=== PATIENT | male | born 1955 | race Caucasian/White ===

== ENCOUNTER 2016-09-11 19:00 | Inpatient (IN) | payer MEDICARE ==
[2016-09-11 20:54] VITALS: BP 147/69
[2016-09-11] MEDS ORDERED: Sodium Chloride 0.9% 1,000 ML IV SCH (21:15)
[2016-09-11] MEDS ORDERED: HYDROmorphone 1 mg/mL 1mL Syr IVP PRN (22:18)
[2016-09-12] MEDS: INSULIN ASPART SLIDING SCALE 100 UNITS/ML UNIT SUBQ SCH ×5 (00:14→21:33)
--- NOTE | 2016-09-12 05:50 | Consultation ---
REFERRING PHYSICIAN: Dr. Alan. REASON FOR CONSULTATION: Subacute bacterial peritonitis. HISTORY OF PRESENT ILLNESS: The patient is a 61-year-old male with a past medical history of diabetes mellitus, hypertension, has developed severe abdominal pain associated with increase in abdominal distension. He felt short of breath and dizziness, so he drove himself to the [facility] and [place] for further evaluation and management. On initial evaluation, the patient's temperature 97 degrees Fahrenheit and WBC count was 2800. CT scan of the abdomen and pelvis revealed diverticulosis without diverticulitis, hepatocellular disease and portal hypertension and non-obstructing left renal stone, small ascites and cholelithiasis. However, the patient had paracentesis performed and around 5100 mL of ascitic fluid removed. The fluid study revealed wbc count of 3500 with a neutrophilic predominance. The patient was diagnosed to have subacute bacterial peritonitis and the patient was started on Rocephin. For insurance purposes, the patient was transferred to [facility] and he was started on Rocephin. ID consult was called for further antibiotic management. PAST MEDICAL HISTORY: Includes diabetes mellitus, hypertension. The patient is not aware of his cirrhosis, but definitely he has some cirrhosis of liver. SOCIAL HISTORY: The patient lives at home and denies any smoking or drug use. The patient drinks alcohol on occasional basis in parties only, no alcohol at home. ALLERGIES: The patient is allergic to PENICILLIN, but has tolerated Rocephin. MEDICATIONS: As per medication reconciliation sheet. Antibiotic guzman, the patient is on Rocephin. FAMILY HISTORY: Noncontributory. REVIEW OF SYSTEMS: CONSTITUTIONAL: The patient denies any fever or chills. HEENT: The patient denies any diplopia, photophobia, sore throat or congestion. RESPIRATORY: The patient denies any cough or shortness of breath at this time, but has presented with shortness of breath, likely restrictive condition due to tense ascites. CARDIOVASCULAR: The patient has swelling of the legs. Denies any chest pain or palpitation. GASTROINTESTINAL: The patient has had upper abdominal pain, which has resolved. The patient also has a significant abdominal distention. Denies any nausea, vomiting, diarrhea or constipation. The patient has history of peptic ulcer disease in the past, required blood transfusions and following blood transfusion, the patient developed bacterial infection requiring IV antibiotic for at least 2 weeks. GENITOURINARY: The patient denies any dysuria or hematuria. NEUROLOGICAL: The patient denies any headache, dizziness or focal weakness at this time. The patient complains of some numbness in lower extremity. PHYSICAL EXAMINATION: CURRENT VITAL SIGNS: Shows temperature is 98 degrees Fahrenheit, pulse 77, respiration is 19, blood pressure 147/69 and oxygen saturation is 99%. GENERAL: The patient is comfortable, well nourished, well developed. HEENT: Head is normocephalic, atraumatic. Oral cavity moist, pink tongue. Eyes: Pallor is present, mild icterus. Pupils PERRLA, EOMI. NECK: Supple, no JVD, no carotid bruit. Trachea in midline. No lymphadenopathy. CHEST: Bilateral breath sounds. No crackles or wheezing. CARDIOVASCULAR: S1 and S2 within normal limit, regular rhythm. No murmur, no gallop. ABDOMEN: Soft, mild tender in the left lower quadrant. Distended. Bowel sounds present. The patient has mild erythema of abdominal wall without any wound. EXTREMITIES: No cyanosis, no clubbing. The patient has pitting edema of both lower extremity. NEUROLOGIC: Alert, awake, oriented x 3. No focal deficit. LABORATORY DATA: Current lab at [facility], WBC count is 2800, hemoglobin 8.5, hematocrit 27.5, platelets are 72,000. Lipase 45, AST is 37, ALT is 21 and alkaline phosphatase is 202, bilirubin is 2.4, creatinine 0.6. Ascitic fluid study, gram-stain and organism, there is presence of white cells, cell count shows wbc 3500, rbc 300, PMNs 83%. Albumin less than 1 and protein less than 3. Urinalysis show negative nitrite, negative leukoesterase. CT scan of the abdomen and pelvis shows diverticulosis without diverticulitis, hepatocellular disease and a portal hypertension, nonobstructing left renal stones, small ascites, cholelithiasis and DJD of lumbar spine. IMPRESSION: 1. Subacute bacterial peritonitis. 2. Cirrhosis, unknown cause at this time. 3. Pancytopenia due to a portal hypertension and cirrhosis. 4. Diabetes mellitus type 2. 5. Hypertension. 6. Peptic ulcer disease requiring blood transfusions and endoscopy. RECOMMENDATIONS: Continue Rocephin and check viral hepatitis panel and HIV. Thank you, Dr. Alan, for involving me in taking care of this patient. Check Doppler venous ultrasound of the lower extremities. JOB# [id number] [email or web address]
[2016-09-12] MEDS: metroNIDAZOLE 500mg/NS 100mL 500 MG/100 ML BAG IV SCH ×3 (05:58→21:34)
[2016-09-12 07:20] LABS: ALB/GLOB RATIO 0.6 (1.0-1.8); ALKALINE PHOSPHATASE 85 U/L (34-104); ANION GAP 6.6 (7.0-16.0); BUN - UREA NITROGEN 5 mg/dL (7-25); CALCIUM SERUM 8.5 mg/dL (8.6-10.3); CARBON DIOXIDE 28.3 mEq/L (21.0-31.0); CHLORIDE 102 mEq/L (98-107); CREATININE - SERUM 0.5 mg/dL (0.7-1.3); GLUCOSE 86 mg/dL (70-105); POTASSIUM SERUM 3.9 mEq/L (3.5-5.1); SGOT 28 U/L (13-39); SGPT/ALT 15 U/L (7-52); SODIUM SERUM 133 mEq/L (136-145)
[2016-09-12 07:26] LABS: HEMATOCRIT 26.7 % (39.0-49.0); HEMOGLOBIN 8.4 gm/dL (13.2-17.3); MEAN CORPUSCULAR HEMOGLOBIN 19.9 pg (26.0-30.0); MEAN CORPUSCULAR HGB CONC 31.5 pg (28.0-36.0); MEAN PLATELET VOLUME 10.5 fl; PLATELET COUNT 95 Th/cmm (150-400); RED BLOOD COUNT 4.22 Mil/cmm (4.30-5.70); RED CELL DISTRIBUTION WIDTH 24.4 % (11.5-20.0); WHITE BLOOD COUNT 2.9 Th/cmm (4.8-10.8)
[2016-09-12] MEDS ORDERED: D5-0.9%NS 1,000 ML IV SCH (07:38)
[2016-09-12 07:57] LABS: MEAN CELL VOLUME 63.1 fl (80-99)
[2016-09-12 09:05] LABS: BAND NEUTROPHILE 1 % (0-10); EOSINOPHIL 1 % (0-5); NEUTROPHILS 84 % (40-80); TOTAL CELLS COUNTED 100
[2016-09-12 09:06] LABS: ANISOCYTOSIS 2+; MICROCYTOSIS 3+; PLATELET ESTIMATE DECREASED PLATELETS (NORMAL); PLATELET MORPHOLOGY GIANT PLATELETS SEEN (NORMAL); POLYCHROMASIA 1+
--- NOTE | 2016-09-12 09:32 | General Progress Note ---
Subjective - Review of Systems Service Date: 09/12/16 Subjective: I feel better Objective - Results Result Diagrams: 09/12/16 06:20 09/12/16 06:20 Recent Labs: Laboratory Last Values WBC 2.9 Th/cmm (4.8-10.8) L 09/12/16 06:20 RBC 4.22 Mil/cmm (4.30-5.70) L 09/12/16 06:20 Hgb 8.4 gm/dL (13.2-17.3) L 09/12/16 06:20 Hct 26.7 % (39.0-49.0) L 09/12/16 06:20 MCV 63.1 fl (80-99) L 09/12/16 06:20 MCH 19.9 pg (26.0-30.0) L 09/12/16 06:20 MCHC Differential 31.5 pg (28.0-36.0) 09/12/16 06:20 RDW 24.4 % (11.5-20.0) H 09/12/16 06:20 Plt Count 95 Th/cmm (150-400) L 09/12/16 06:20 MPV 10.5 fl 09/12/16 06:20 Band Neutrophils % 1 % (0-10) 09/12/16 06:20 Neutrophils (Manual) 84 % (40-80) H 09/12/16 06:20 Lymphocytes 6 % (20-50) L 09/12/16 06:20 Monocytes 8 % (2-10) 09/12/16 06:20 Eosinophils 1 % (0-5) 09/12/16 06:20 Platelet Estimate DECREASED PLATELETS (NORMAL) 09/12/16 06:20 Platelet Morphology GIANT PLATELETS SEEN (NORMAL) 09/12/16 06:20 Polychromasia 1+ 09/12/16 06:20 Anisocytosis 2+ 09/12/16 06:20 Microcytosis 3+ 09/12/16 06:20 RBC Morph Micro Appear ABNORMAL (NORMAL) 09/12/16 06:20 Sodium 133 mEq/L (136-145) L 09/12/16 06:20 Potassium 3.9 mEq/L (3.5-5.1) 09/12/16 06:20 Chloride 102 mEq/L (98-107) 09/12/16 06:20 Carbon Dioxide 28.3 mEq/L (21.0-31.0) 09/12/16 06:20 Anion Gap 6.6 (7.0-16.0) L 09/12/16 06:20 BUN 5 mg/dL (7-25) L 09/12/16 06:20 Creatinine 0.5 mg/dL (0.7-1.3) L 09/12/16 06:20 Est GFR ( Amer) > 60.0 ml/min (>90) 09/12/16 06:20 Est GFR (Non-Af Amer) > 60.0 ml/min 09/12/16 06:20 BUN/Creatinine Ratio 10.0 09/12/16 06:20 Glucose 86 mg/dL (70-105) 09/12/16 06:20 POC Glucose 83 MG/DL (70 - 105) 09/12/16 06:05 Calcium 8.5 mg/dL (8.6-10.3) L 09/12/16 06:20 Total Bilirubin 2.0 mg/dL (0.3-1.0) H 09/12/16 06:20 AST 28 U/L (13-39) 09/12/16 06:20 ALT 15 U/L (7-52) 09/12/16 06:20 Alkaline Phosphatase 85 U/L (34-104) 09/12/16 06:20 Ammonia 72 umol/L (16-53) H 09/12/16 06:20 Total Protein 6.6 gm/dL (6.0-8.3) 09/12/16 06:20 Albumin 2.5 gm/dL (4.2-5.5) L 09/12/16 06:20 Globulin 4.1 gm/dL 09/12/16 06:20 Albumin/Globulin Ratio 0.6 (1.0-1.8) L 09/12/16 06:20 - Physical Exam Vitals and I&O: Vital Signs Temp 97.6 F 09/12/16 07:49 Pulse 83 09/12/16 07:49 Resp 18 09/12/16 07:49 BP 136/80 09/12/16 07:49 Pulse Ox 98 09/12/16 07:49 Intake & Output 09/11/16 09/12/16 09/12/16 18:59 06:59 18:59 Weight (lbs) 99.79 kg Active Medications: Current Medications Hydromorphone HCl (Dilaudid) 1 mg IVP Q6HR PRN PRN Reason: Pain (Severe) Stop: 11/10/16 22:17 Sodium Chloride (Nacl 0.9%) 1,000 mls @ 75 mls/hr IV .[id number] [facility] Stop: 11/10/16 21:14 Last Admin: 09/11/16 23:39 Dose: 75 mls/hr Ceftriaxone Sodium 1 gm/ (Sodium Chloride) 50 mls @ 100 mls/hr IV Q24HR [facility] Stop: 11/11/16 08:59 Metronidazole (Flagyl) 500 mg in 100 mls @ 100 mls/hr IV Q8HR [facility] Stop: 11/11/16 04:59 Last Admin: 09/12/16 05:58 Dose: 100 mls/hr Dextrose/Sodium Chloride (D5-0.9%Ns) 1,000 mls @ 100 mls/hr IV .Q10H [facility] Stop: 11/11/16 07:37 Ibuprofen (Motrin) 800 mg PO Q8H PRN PRN Reason: Pain or Fever >101 Stop: 11/10/16 22:18 Insulin Aspart (Novolog Insulin Sliding Scale) 0 units SUBQ ACHS KIT PRN Reason: Protocol Stop: 11/11/16 11:29 Ondansetron HCl (Zofran) 4 mg IV Q8H PRN PRN Reason: Nausea / Vomiting Stop: 11/10/16 22:20 General: Alert, Oriented x3, No acute distress HEENT: Atraumatic Neck: Supple Cardiovascular: Regular rate Lungs: Clear to auscultation Abdomen: Bowel sounds, Soft, Other (Distended, tender at palpation, bs present) , no Catheter Neurological: Normal gait Skin: Other (Warm and dry) Psych/Mental Status: Mental status NL Assessment/Plan - Assessment Assessment: Patient is awake, alert, calm, oriented. DX: SBP, Pancitopenia, Cirrhosis, DM, anemia. - Plan Plan: Patient is on AB, and insulin sliding scale. . consults with ID, Hemathology and GI were requested. Will continue to monitor.
[2016-09-12 09:52] LABS: TSH 1.38 uIU/ml (0.34-5.60)
[2016-09-12] MEDS: cefTRIAXone 1 GM in Sodium Chloride 0.9% 50 ML IV SCH (11:05)
--- NOTE | 2016-09-12 12:01 | Diagnostic Imaging Report ---
Ultrasound abdomen HISTORY: Ascites COMPARISON: None Technique: Sonography of the abdomen was performed in multiple planes. FINDINGS: Exam is limited due to body habitus and bowel gas. The liver demonstrates heterogeneous echogenicity and measures 16.4 cm. The liver demonstrates irregular peripheral borders. No discrete focal lesions identified. No evidence of gallstones or gallbladder wall thickening. The common bile duct measures 4 mm. Assessment of the pancreas is limited due to bowel gas. The right kidney measures 12.7 cm. The left kidney measures 13 cm. No evidence of focal lesions or hydronephrosis. The spleen measures 16.6 cm. Mild to moderate ascites was noted. IMPRESSION: Limited exam due to body habitus and bowel gas. Mild to moderate ascites Heterogeneous liver with probable early cirrhotic changes. Please correlate with patient's clinical findings. Splenomegaly Increased renal sizes, nonspecific. No evidence of hydronephrosis.
--- NOTE | 2016-09-12 13:29 | History & Physical ---
CHIEF COMPLAINT: Abdominal pain. HISTORY OF PRESENT ILLNESS: This is the case of a 61-year-old male who referred that since 3 months ago he started to have abdominal distention and pain. They were progressing and getting worse and few weeks ago, he started to notice edema of lower extremities. He went to his primary care physician and was told that he had a liver problem and needs to see a liver specialist. Yesterday, he felt so bad and the pain was so intense that he decided to go to Emergency Room [facility] [place] and the diagnosis was spontaneous peritoneal infection. He was transferred to [facility] to continue treatment. PAST MEDICAL HISTORY: The patient was referred 5 years ago, he had severe anemia that needed transfusion. The patient referred he has diabetes mellitus. SOCIAL HISTORY: The patient lives at home. He referred occasional alcohol drinking. He denies illicit drug use. ALLERGIES: PENICILLIN. FAMILY HISTORY: Unremarkable. MEDICATIONS: Reviewed. REVIEW OF SYSTEMS: LUNGS: The patient denies shortness of breath. HEART: The patient denies chest pain. ABDOMEN: The patient referred abdominal distention and pain. EXTREMITIES: Edema. NEUROLOGICAL: Unremarkable. PHYSICAL EXAMINATION: GENERAL: Does reveal a fairly nourished and developed male, awake, alert, oriented, in no acute distress. HEENT: Head is normocephalic and atraumatic. Eyes: Pupils reactive to light. Nose: No evidence of nasal obstruction. Ears: No evidence of any discharge. Mouth: Fairly ____. LUNGS: Bilateral air entry. No wheezing. No crackles. HEART: Regular rate and rhythm. ABDOMEN: Distended. Tender on palpation. At this moment, it is not clear if there is hepatomegaly. Bowel sound is present. EXTREMITIES: There is pitting edema 1+. NEUROLOGICAL: The patient is awake, alert and in no acute distress. Nerves 2-12 grossly intact. IMPRESSION: 1. ____. 2. Spontaneous peritonitis. 3. Diabetes mellitus. 4. Pancytopenia. PLAN: 1. The patient will be admitted in medical surgical floor. 2. IV normal saline. 3. Insulin sliding scale. 4. Liver diet. 5. CBC, CMP at a.m. 6. Consult with Dr. Burleson, GI and Dr. Eliazar Hastings, ID and Dr. De La Garza, Hematology. [facility]# [id number]
--- NOTE | 2016-09-12 13:34 | Admit Criteria Form ---
Admit Criteria Forms - Admit Criteria Admit Criteria Met?: Yes
--- NOTE | 2016-09-12 13:41 | Infectious Disease Prog Note ---
Infectious Disease Subjective - Review of Systems Service Date: 09/12/16 Subjective: There is no new change, there is no fever. Infectious Disease Objective - Results Result Diagrams: 09/12/16 06:20 09/12/16 06:20 Recent Labs: Laboratory Last Values WBC 2.9 Th/cmm (4.8-10.8) L 09/12/16 06:20 RBC 4.22 Mil/cmm (4.30-5.70) L 09/12/16 06:20 Hgb 8.4 gm/dL (13.2-17.3) L 09/12/16 06:20 Hct 26.7 % (39.0-49.0) L 09/12/16 06:20 MCV 63.1 fl (80-99) L 09/12/16 06:20 MCH 19.9 pg (26.0-30.0) L 09/12/16 06:20 MCHC Differential 31.5 pg (28.0-36.0) 09/12/16 06:20 RDW 24.4 % (11.5-20.0) H 09/12/16 06:20 Plt Count 95 Th/cmm (150-400) L 09/12/16 06:20 MPV 10.5 fl 09/12/16 06:20 Band Neutrophils % 1 % (0-10) 09/12/16 06:20 Neutrophils (Manual) 84 % (40-80) H 09/12/16 06:20 Lymphocytes 6 % (20-50) L 09/12/16 06:20 Monocytes 8 % (2-10) 09/12/16 06:20 Eosinophils 1 % (0-5) 09/12/16 06:20 Platelet Estimate DECREASED PLATELETS (NORMAL) 09/12/16 06:20 Platelet Morphology GIANT PLATELETS SEEN (NORMAL) 09/12/16 06:20 Polychromasia 1+ 09/12/16 06:20 Anisocytosis 2+ 09/12/16 06:20 Microcytosis 3+ 09/12/16 06:20 RBC Morph Micro Appear ABNORMAL (NORMAL) 09/12/16 06:20 Sodium 133 mEq/L (136-145) L 09/12/16 06:20 Potassium 3.9 mEq/L (3.5-5.1) 09/12/16 06:20 Chloride 102 mEq/L (98-107) 09/12/16 06:20 Carbon Dioxide 28.3 mEq/L (21.0-31.0) 09/12/16 06:20 Anion Gap 6.6 (7.0-16.0) L 09/12/16 06:20 BUN 5 mg/dL (7-25) L 09/12/16 06:20 Creatinine 0.5 mg/dL (0.7-1.3) L 09/12/16 06:20 Est GFR ( Amer) > 60.0 ml/min (>90) 09/12/16 06:20 Est GFR (Non-Af Amer) > 60.0 ml/min 09/12/16 06:20 BUN/Creatinine Ratio 10.0 09/12/16 06:20 Glucose 86 mg/dL (70-105) 09/12/16 06:20 POC Glucose 121 MG/DL (70 - 105) H 09/12/16 11:46 Hemoglobin A1c % 6.4 % (4.0-6.0) H 09/12/16 06:20 Calcium 8.5 mg/dL (8.6-10.3) L 09/12/16 06:20 Total Bilirubin 2.0 mg/dL (0.3-1.0) H 09/12/16 06:20 AST 28 U/L (13-39) 09/12/16 06:20 ALT 15 U/L (7-52) 09/12/16 06:20 Alkaline Phosphatase 85 U/L (34-104) 09/12/16 06:20 Ammonia 72 umol/L (16-53) H 09/12/16 06:20 Total Protein 6.6 gm/dL (6.0-8.3) 09/12/16 06:20 Albumin 2.5 gm/dL (4.2-5.5) L 09/12/16 06:20 Globulin 4.1 gm/dL 09/12/16 06:20 Albumin/Globulin Ratio 0.6 (1.0-1.8) L 09/12/16 06:20 TSH 1.38 uIU/ml (0.34-5.60) 09/12/16 06:20 - Physical Exam Vitals and I&O: Vital Signs Temp 97.6 F 09/12/16 07:49 Pulse 83 09/12/16 07:49 Resp 20 09/12/16 08:00 BP 136/80 09/12/16 07:49 Pulse Ox 98 09/12/16 07:49 Intake & Output 09/11/16 09/12/16 09/12/16 18:59 06:59 18:59 Intake Total 0 Balance 0 Weight (lbs) 99.79 kg Intake: Oral 0 Active Medications: Current Medications Furosemide (Lasix) 40 mg PO DAILY [facility] Stop: 11/11/16 17:59 Hydromorphone HCl (Dilaudid) 1 mg IVP Q6HR PRN PRN Reason: Pain (Severe) Stop: 11/10/16 22:17 Sodium Chloride (Nacl 0.9%) 1,000 mls @ 75 mls/hr IV .[id number] [facility] Stop: 11/10/16 21:14 Last Admin: 09/11/16 23:39 Dose: 75 mls/hr Ceftriaxone Sodium 1 gm/ (Sodium Chloride) 50 mls @ 100 mls/hr IV Q24HR [facility] Stop: 11/11/16 08:59 Last Admin: 09/12/16 11:05 Dose: 100 mls/hr Metronidazole (Flagyl) 500 mg in 100 mls @ 100 mls/hr IV Q8HR [facility] Stop: 11/11/16 04:59 Last Admin: 09/12/16 05:58 Dose: 100 mls/hr Dextrose/Sodium Chloride (D5-0.9%Ns) 1,000 mls @ 100 mls/hr IV .Q10H [facility] Stop: 11/11/16 07:37 Ibuprofen (Motrin) 800 mg PO Q8H PRN PRN Reason: Pain or Fever >101 Stop: 11/10/16 22:18 Insulin Aspart (Novolog Insulin Sliding Scale) 0 units SUBQ ACHS KIT PRN Reason: Protocol Stop: 11/11/16 11:29 Last Admin: 09/12/16 12:00 Dose: Not Given Ondansetron HCl (Zofran) 4 mg IV Q8H PRN PRN Reason: Nausea / Vomiting Stop: 11/10/16 22:20 Spironolactone (Aldactone) 50 mg PO BID [facility] Stop: 11/11/16 16:59 General: no acute distress, well developed, well nourished HEENT: atraumatic, normocephalic, PERRLA, EOMI Neck: supple, no thyromegaly, no lymphadenopathy Cardiovascular: S1S2, regular Lungs: clear to auscultation bilaterally, clear to percussion Abdomen: soft, no tender, no distended Extremities: no cyanosis, no clubbing, no edema Neurological: awake, alert, oriented Skin: intact Infectious Disease Assmt/Plan - Assessment Assessment: IMPRESSION: 1. Subacute bacterial peritonitis. 2. Cirrhosis, unknown cause at this time. 3. Pancytopenia due to a portal hypertension and cirrhosis. 4. Diabetes mellitus type 2. 5. Hypertension. 6. Peptic ulcer disease requiring blood transfusions and endoscopy. - Plan Plan: Continue Rocephin for two weeks.
--- NOTE | 2016-09-12 13:45 | Infectious Disease Prog Note ---
Infectious Disease Subjective - Review of Systems Service Date: 09/12/16 Subjective: There is no new change, there is no fever. Infectious Disease Objective - Results Result Diagrams: 09/12/16 06:20 09/12/16 06:20 Recent Labs: Laboratory Last Values WBC 2.9 Th/cmm (4.8-10.8) L 09/12/16 06:20 RBC 4.22 Mil/cmm (4.30-5.70) L 09/12/16 06:20 Hgb 8.4 gm/dL (13.2-17.3) L 09/12/16 06:20 Hct 26.7 % (39.0-49.0) L 09/12/16 06:20 MCV 63.1 fl (80-99) L 09/12/16 06:20 MCH 19.9 pg (26.0-30.0) L 09/12/16 06:20 MCHC Differential 31.5 pg (28.0-36.0) 09/12/16 06:20 RDW 24.4 % (11.5-20.0) H 09/12/16 06:20 Plt Count 95 Th/cmm (150-400) L 09/12/16 06:20 MPV 10.5 fl 09/12/16 06:20 Band Neutrophils % 1 % (0-10) 09/12/16 06:20 Neutrophils (Manual) 84 % (40-80) H 09/12/16 06:20 Lymphocytes 6 % (20-50) L 09/12/16 06:20 Monocytes 8 % (2-10) 09/12/16 06:20 Eosinophils 1 % (0-5) 09/12/16 06:20 Platelet Estimate DECREASED PLATELETS (NORMAL) 09/12/16 06:20 Platelet Morphology GIANT PLATELETS SEEN (NORMAL) 09/12/16 06:20 Polychromasia 1+ 09/12/16 06:20 Anisocytosis 2+ 09/12/16 06:20 Microcytosis 3+ 09/12/16 06:20 RBC Morph Micro Appear ABNORMAL (NORMAL) 09/12/16 06:20 Sodium 133 mEq/L (136-145) L 09/12/16 06:20 Potassium 3.9 mEq/L (3.5-5.1) 09/12/16 06:20 Chloride 102 mEq/L (98-107) 09/12/16 06:20 Carbon Dioxide 28.3 mEq/L (21.0-31.0) 09/12/16 06:20 Anion Gap 6.6 (7.0-16.0) L 09/12/16 06:20 BUN 5 mg/dL (7-25) L 09/12/16 06:20 Creatinine 0.5 mg/dL (0.7-1.3) L 09/12/16 06:20 Est GFR ( Amer) > 60.0 ml/min (>90) 09/12/16 06:20 Est GFR (Non-Af Amer) > 60.0 ml/min 09/12/16 06:20 BUN/Creatinine Ratio 10.0 09/12/16 06:20 Glucose 86 mg/dL (70-105) 09/12/16 06:20 POC Glucose 121 MG/DL (70 - 105) H 09/12/16 11:46 Hemoglobin A1c % 6.4 % (4.0-6.0) H 09/12/16 06:20 Calcium 8.5 mg/dL (8.6-10.3) L 09/12/16 06:20 Total Bilirubin 2.0 mg/dL (0.3-1.0) H 09/12/16 06:20 AST 28 U/L (13-39) 09/12/16 06:20 ALT 15 U/L (7-52) 09/12/16 06:20 Alkaline Phosphatase 85 U/L (34-104) 09/12/16 06:20 Ammonia 72 umol/L (16-53) H 09/12/16 06:20 Total Protein 6.6 gm/dL (6.0-8.3) 09/12/16 06:20 Albumin 2.5 gm/dL (4.2-5.5) L 09/12/16 06:20 Globulin 4.1 gm/dL 09/12/16 06:20 Albumin/Globulin Ratio 0.6 (1.0-1.8) L 09/12/16 06:20 TSH 1.38 uIU/ml (0.34-5.60) 09/12/16 06:20 - Physical Exam Vitals and I&O: Vital Signs Temp 97.6 F 09/12/16 07:49 Pulse 83 09/12/16 07:49 Resp 20 09/12/16 08:00 BP 136/80 09/12/16 07:49 Pulse Ox 98 09/12/16 07:49 Intake & Output 09/11/16 09/12/16 09/12/16 18:59 06:59 18:59 Intake Total 0 Balance 0 Weight (lbs) 99.79 kg Intake: Oral 0 Active Medications: Current Medications Furosemide (Lasix) 40 mg PO DAILY [facility] Stop: 11/11/16 17:59 Hydromorphone HCl (Dilaudid) 1 mg IVP Q6HR PRN PRN Reason: Pain (Severe) Stop: 11/10/16 22:17 Sodium Chloride (Nacl 0.9%) 1,000 mls @ 75 mls/hr IV .[id number] [facility] Stop: 11/10/16 21:14 Last Admin: 09/11/16 23:39 Dose: 75 mls/hr Ceftriaxone Sodium 1 gm/ (Sodium Chloride) 50 mls @ 100 mls/hr IV Q24HR [facility] Stop: 11/11/16 08:59 Last Admin: 09/12/16 11:05 Dose: 100 mls/hr Metronidazole (Flagyl) 500 mg in 100 mls @ 100 mls/hr IV Q8HR [facility] Stop: 11/11/16 04:59 Last Admin: 09/12/16 05:58 Dose: 100 mls/hr Dextrose/Sodium Chloride (D5-0.9%Ns) 1,000 mls @ 100 mls/hr IV .Q10H [facility] Stop: 11/11/16 07:37 Ibuprofen (Motrin) 800 mg PO Q8H PRN PRN Reason: Pain or Fever >101 Stop: 11/10/16 22:18 Insulin Aspart (Novolog Insulin Sliding Scale) 0 units SUBQ ACHS KIT PRN Reason: Protocol Stop: 11/11/16 11:29 Last Admin: 09/12/16 12:00 Dose: Not Given Ondansetron HCl (Zofran) 4 mg IV Q8H PRN PRN Reason: Nausea / Vomiting Stop: 11/10/16 22:20 Spironolactone (Aldactone) 50 mg PO BID [facility] Stop: 11/11/16 16:59 General: no acute distress, well developed, well nourished HEENT: atraumatic, normocephalic, PERRLA, EOMI Neck: supple, no thyromegaly Cardiovascular: S1S2, regular Lungs: clear to auscultation bilaterally, clear to percussion Abdomen: soft, distended, ascites, bowel sounds, obese, no tender, no rebound, no splenomegaly, no guarding, no drain Extremities: edema, no cyanosis, no clubbing Neurological: awake, alert, oriented, CN 2-12 intact Skin: intact Infectious Disease Assmt/Plan - Assessment Assessment: IMPRESSION: 1. Subacute bacterial peritonitis. 2. Cirrhosis, unknown cause at this time. 3. Pancytopenia due to a portal hypertension and cirrhosis. 4. Diabetes mellitus type 2. 5. Hypertension. 6. Peptic ulcer disease requiring blood transfusions and endoscopy. - Plan Plan: Continue Rocephin for two weeks. Follow up on pending labs.
--- NOTE | 2016-09-12 13:45 | Admit Criteria Form ---
Admit Criteria Forms - Admit Criteria Diagnosis: GASTROENTEROLOGY GRG Clinical Indications for Admission to Inpatient Care (Place 'X' for any and all applicable criteria): Hospital admission is needed for appropriate care of the patient because of ANY ONE of the followin [ ]I. Hemoperitoneum(7) [ ]II. Ascites requiring acute treatment indicated by ANY ONE of the following( 8)(9): [ ]a) Hemodynamic instability remaining after emergency or observation level care (as appropriate) [ ]b) Peritoneal signs present (eg, abdominal rigidity, rebound tenderness, absent bowel sounds) [ ]c) Tachypnea, Hypoxemia, or other respiratory symptoms remain after emergency or observation level care (as appropriate) [ ]d) Suspected infected ascites as indicated by ANY ONE of the following: [ ]i) Temperature greater than 100 degrees F (37.8 degrees C) [ ]ii) Abdominal pain or tenderness not relieved by paracentesis [ ]iii) Systemic signs of infection (eg, elevated WBC count, fever) [ ]iv) Ascitic fluid analysis consistent with infection ( eg, elevated WBC count): [ ]v) Vital sign abnormality [X]III. Suspected acute intra-abdominal process indicated by ANY ONE of the following(1)(2)(3)(4)(5): [ ]a) Hemodynamic instability [ ]b) Peritoneal signs present (eg, abdominal rigidity, rebound tenderness, absent bowel sounds) [ ]c) Bowel obstruction suspected (eg, severe vomiting, abdominal distension) [ ]d) Suspected mesenteric ischemia or ischemic colitis(6) [X]e) Other signs or symptoms of acute abdominal disease (eg, severe pain, free air): [ ]IV. Severe liver disease indicated by ANY ONE of the following(8)(9)(10)(11)( 12)(13)(14): [ ]a) Acute hepatitis (eg, transaminase level greater than 1000 IU/L) [ ]b) Acute elevation of prothrombin time to more than 50% above normal or INR greater than 1.5 [ ]c) Bilirubin greater than 20 mg/dL (342 micromoles/L) (15) [ ]d) New-onset or worsening hepatic encephalopathy [ ]e) Acute liver necrosis [ ]f) Vomiting or dehydration that is severe of persistent [ ]g) Hemodynamic instability due to liver disease [ ]h) Acute renal failure [ ]i) Hepatic abscess [ ]j) Dehydration that is severe or persistent [ ]k) Hepatic hydrothorax(21) [ ]l) Other indications of severe liver disease (eg, persistent fever , ingestion of hepatotoxin) [ ]V. Severe diarrhea indicated by ANY ONE of the following(17)(18)(19)(20)(21)( 22)(23): [ ]a) High fever or other high-risk infection situation [ ]b) Intractable bloody diarrhea (eg, more than 6 bloody stools per day) [ ]c) Suspected Clostridium difficile-associated diarrhea(24) [ ]d) Change in mental status that persists after emergency or observation level care (as appropriate) [ ]e) Severe dehydration (eg, greater than 9% loss of body weight in children) [ ]f) Inability to maintain hydration [ ]g) Peritoneal signs present (eg, abdominal rigidity, rebound tenderness, absent bowel sounds) [ ]h) Abdominal ischemia suspected(6) [ ]i) Hemodynamic instability that persists after emergency or observation level care (as appropriate) [ ]j) Severe electrolyte abnormalities requiring inpatient care [ ]k) Acute renal failure [ ]. Suspected toxic megacolon(5)(6) [ ]VII.Severe dysphagia indicated by ANY ONE of the following(25)(26): [ ]a) Suspected esophageal perforation or fistula(27) [ ]b) Suspected cause that requires inpatient care (eg, caustic ingestion, severe esophagitis) (28) [ ]c) Severe dehydration (eg, greater than 9% loss of body weight in children) [ ]d) Inability to manage secretions or maintain hydration [ ]e) Hemodynamic instability that persists after emergency or observation level care (as appropriate) [ ]f) Severe electrolyte abnormalities requiring inpatient care [ ]g) Acute renal failure [ ]VIII.Vomiting and ANY ONE of the following (29)(30)(31)(32): [ ]a) High fever or other high-risk infection situation [ ]b) Change in mental status that persists after emergency or observation level care (as appropriate) [ ]c) Severe dehydration (e.g., greater than 9% loss of body weight in children) [ ]d) Peritoneal signs present (e.g., abdominal rigidity, rebound tenderness, absent bowel sounds) [ ]e) Hemodynamic instability that persists after emergency or observation level care (as appropriate) [ ]f) Severe electrolyte abnormalities requiring inpatient care [ ]g) Acute renal failure [ ]h) Bowel obstruction suspected (e.g., severe vomiting, abdominal distension) [ ]i) Vomiting that is severe or persistent after medical treatment [ ]IX. Significant dehydration indicated by ANY ONE of the following(23)(24)(25) [ ]a) Clinical findings of severe dehydration indicated by ANY ONE of the following: [ ]i) Acute loss of weight from baseline (5% of body weight in adults, 9% in pediatric patients) [ ]ii) Hemodynamic instability [ ]iii) Acute renal failure [ ]iv) Serum sodium greater than 150 mEq/L (mmol/L) [ ]b) Dehydration that is persistent indicated by ALL of the following: [ ]i) Oral rehydration therapy not tolerated or insufficient to adequately correct dehydration [ ]ii) Appropriate intravenous treatment (eg, fluids) does not readily correct dehydration hours of (ie, after 12 to 24 of treatment) [ ]X. Gastroparesis and ANY ONE of the following(37)(38)(39): [ ]a) Dehydration that is severe or persistent [ ]b) Severe electrolyte abnormalities requiring inpatient care [ ]c) Acute renal failure [ ]d) Vomiting that is severe or persistent [ ]XI. Complications of transplanted liver indicated by ANY ONE of the following (40)(41): [ ]a) Acute graft rejection requiring inpatient management (eg, intravenous immunosuppression)(42) [ ]b) Failure of transplanted liver as indicated by ANY ONE of the following: [ ]i) Acute hepatitis (eg, transaminase level greater than 1000 International Units per liter (IU/L)) [ ]ii) Acute elevation of prothrombin time to more than 50% above baseline or INR greater than 1.5 [ ]iii) Bilirubin greater than 20 mg/dL (342 micromoles/L) [ ]iv) New-onset or worsening hepatic encephalopathy [ ]v) Acute elevation of serum ammonia level (eg, greater than 210 mcg/dL (150 micromoles/L)) [ ]vi) Acute liver necrosis [ ]c) Infection requiring inpatient management (eg, Hemodynamic instability, need for intravenous antimicrobial treatment)(43)(44)(45)(46)(47)(48)(49)(50) [ ]d) Other complication of transplanted liver (eg, thrombosis, autoimmune hepatitis, variceal bleeding) requiring inpatient management(51)(52) [ ]XII Complications of transplanted pancreas indicated by ANY ONE of the following(53): [ ]a) Acute graft rejection requiring inpatient management (eg, intravenous immunosuppression)(42)(54) [ ]b) Failure of transplanted pancreas as indicated by ANY ONE of the following: [ ]i) Serum amylase greater than 3 times the upper limit of normal or baseline [ ]ii) Serum lipase greater than 3 times the upper limit of normal or baseline [ ]iii) Imaging findings consistent with pancreatic inflammation or necrosis [ ]c) Infection requiring inpatient management (eg, Hemodynamic instability, need for intravenous antimicrobial treatment)(43)(44)(45)(46)(47)(48)(49)(50) [ ]d) Other complication of transplanted liver (eg, thrombosis, autoimmune hepatitis, variceal bleeding) requiring inpatient management(51)(52) [ ]X. Gastroenterology condition and ALL of the following: [ ]a) Symptom or finding for which emergency and observation care have failed or are not considered appropriate (Also use General Criteria: Observation Care as appropriate) [ ]b) Presence of ANY ONE of the following: [ ]i) A General Admission Criteria [ ]ii) A Pediatric General Admission Criteria. The original [facility] Done. content created by [facility] has been revised. The portions of the content which have been revised are identified through the use of italic text or in bold,and [facility] has neither reviewed nor approved the modified material. All other unmodified content is copyright [facility]. Please see references footnoted in the original [email or web address] edition 2016 Admit Criteria Met?: Yes
[2016-09-12] MEDS: Sodium Chloride 0.9% 1,000 ML IV SCH (15:00)
[2016-09-12] MEDS ORDERED: VTE Chemical Prophylaxis Screen/Admission MC PRN (16:46)
--- NOTE | 2016-09-13 00:32 | Consultation ---
INPATIENT GI CONSULT REFERRING PHYSICIAN: Dr. Falguni Alan REASON FOR CONSULTATION: Cirrhosis. HISTORY OF PRESENT ILLNESS: This is a 61-year-old male with underlying diabetes, hypertension, had increasing abdominal girth, and was seen over at [place] and had a paracentesis done. The patient is now being told he has underlying liver disease, which may be in fact due to cirrhosis. It was also noted that he was diagnosed with subacute bacterial peritonitis and was started on Rocephin before he was transferred to [facility]. He denies having any nausea, vomiting, or GI bleeding. He denies having any confusion. PAST MEDICAL HISTORY: Diabetes and hypertension. PAST SURGICAL HISTORY: None to abdomen. FAMILY HISTORY: Noncontributory. SOCIAL HISTORY: Denies tobacco or IV drug usage, but in the past drank alcohol on a regular occasion. ALLERGIES: PENICILLIN. CURRENT MEDICATIONS: Ceftriaxone, insulin, and Flagyl. REVIEW OF SYSTEMS: Ten-point review of systems was performed and the pertinent positive was the abdominal girth and ascites. All other systems were otherwise negative. PHYSICAL EXAMINATION: VITAL SIGNS: Temperature 97.6, breathing 18, pulse of 83, blood pressure 136/80, and satting 98%. GENERAL: In no apparent distress. EYES: Anicteric. Normal conjunctivae. HEENT: Normocephalic and atraumatic. Moist mucous membranes. NECK: Soft and supple. CHEST: Clear effort. CARDIOVASCULAR: Regular rate and rhythm. ABDOMEN: Soft, distended, and nontender. SKIN: Warm and dry. EXTREMITIES: Reveal no cyanosis. PSYCHOLOGIC: Alert and oriented x 3. LABORATORY DATA: Show white count 2.9, hemoglobin 8.4, and platelets of 95,000. Creatinine is 0.5, AST 20, ALT 15, and alkaline phosphatase 85. Abdominal ultrasound showed moderate ascites, cirrhotic appearing liver, and splenomegaly. IMPRESSION: This is a 61-year-old male with cirrhosis and ascites. Cause could be from prior heavy alcohol consumption. Other forms of liver disease should be checked. PLAN: 1. Check liver labs. 2. Abdominal paracentesis. 3. Consider diuretics. 4. I told the patient to establish care with Hepatology as an outpatient through his PCP. 5. Avoid alcohol. Join AA. Thank you for allowing me to participate. Please call me if any questions. JOB# [id number]
[2016-09-13] MEDS: Sodium Chloride 0.9% 1,000 ML IV SCH (04:08)
[2016-09-13] MEDS: metroNIDAZOLE 500mg/NS 100mL 500 MG/100 ML BAG IV SCH ×2 (05:32→12:20)
[2016-09-13 06:42] LABS: MEAN CORPUSCULAR HGB CONC 31.6 pg (28.0-36.0)
[2016-09-13 06:45] LABS: HEMATOCRIT 26.3 % (39.0-49.0); HEMOGLOBIN 8.3 gm/dL (13.2-17.3); MEAN PLATELET VOLUME 10.7 fl; PLATELET COUNT 113 Th/cmm (150-400); RED BLOOD COUNT 4.21 Mil/cmm (4.30-5.70); RED CELL DISTRIBUTION WIDTH 24.5 % (11.5-20.0); WHITE BLOOD COUNT 2.8 Th/cmm (4.8-10.8)
[2016-09-13 06:57] LABS: ALB/GLOB RATIO 0.6 (1.0-1.8); ALKALINE PHOSPHATASE 78 U/L (34-104); ANION GAP 7.7 (7.0-16.0); BILIRUBIN,TOTAL 1.8 mg/dL (0.3-1.0); BUN - UREA NITROGEN 7 mg/dL (7-25); BUN/CREATININE RATIO 11.7; CALCIUM SERUM 8.3 mg/dL (8.6-10.3); CARBON DIOXIDE 28.2 mEq/L (21.0-31.0); CHLORIDE 102 mEq/L (98-107); CREATININE - SERUM 0.6 mg/dL (0.7-1.3); GLUCOSE 93 mg/dL (70-105); INR 1.46 (0.5-1.4); POTASSIUM SERUM 3.9 mEq/L (3.5-5.1); PROTHROMBIN TIME (TEST) 15.5 SECONDS (9.5-11.5); SGOT 27 U/L (13-39); SGPT/ALT 13 U/L (7-52); SODIUM SERUM 134 mEq/L (136-145)
[2016-09-13] MEDS: INSULIN ASPART SLIDING SCALE 100 UNITS/ML UNIT SUBQ SCH ×2 (06:57→11:29)
[2016-09-13] MEDS: cefTRIAXone 1 GM in Sodium Chloride 0.9% 50 ML IV SCH (09:12)
--- NOTE | 2016-09-13 10:14 | General Progress Note ---
Subjective - Review of Systems Service Date: 09/13/16 Subjective: I want go home. Objective - Results Result Diagrams: 09/13/16 06:25 09/13/16 06:25 Recent Labs: Laboratory Last Values WBC 2.8 Th/cmm (4.8-10.8) L 09/13/16 06:25 RBC 4.21 Mil/cmm (4.30-5.70) L 09/13/16 06:25 Hgb 8.3 gm/dL (13.2-17.3) L 09/13/16 06:25 Hct 26.3 % (39.0-49.0) L 09/13/16 06:25 MCV 63.1 fl (80-99) L 09/12/16 06:20 MCH 19.7 pg (26.0-30.0) L 09/13/16 06:25 MCHC Differential 31.6 pg (28.0-36.0) 09/13/16 06:25 RDW 24.5 % (11.5-20.0) H 09/13/16 06:25 Plt Count 113 Th/cmm (150-400) L 09/13/16 06:25 MPV 10.7 fl 09/13/16 06:25 Band Neutrophils % 1 % (0-10) 09/12/16 06:20 Neutrophils (Manual) 84 % (40-80) H 09/12/16 06:20 Lymphocytes 6 % (20-50) L 09/12/16 06:20 Monocytes 8 % (2-10) 09/12/16 06:20 Eosinophils 1 % (0-5) 09/12/16 06:20 Platelet Estimate DECREASED PLATELETS (NORMAL) 09/12/16 06:20 Platelet Morphology GIANT PLATELETS SEEN (NORMAL) 09/12/16 06:20 Polychromasia 1+ 09/12/16 06:20 Anisocytosis 2+ 09/12/16 06:20 Microcytosis 3+ 09/12/16 06:20 RBC Morph Micro Appear ABNORMAL (NORMAL) 09/12/16 06:20 PT 15.5 SECONDS (9.5-11.5) H 09/13/16 06:25 INR 1.46 (0.5-1.4) H 09/13/16 06:25 PTT (Actin FS) 32.7 SECONDS (26.0-38.0) 09/13/16 06:25 Sodium 134 mEq/L (136-145) L 09/13/16 06:25 Potassium 3.9 mEq/L (3.5-5.1) 09/13/16 06:25 Chloride 102 mEq/L (98-107) 09/13/16 06:25 Carbon Dioxide 28.2 mEq/L (21.0-31.0) 09/13/16 06:25 Anion Gap 7.7 (7.0-16.0) 09/13/16 06:25 BUN 7 mg/dL (7-25) 09/13/16 06:25 Creatinine 0.6 mg/dL (0.7-1.3) L 09/13/16 06:25 Est GFR ( Amer) > 60.0 ml/min (>90) 09/13/16 06:25 Est GFR (Non-Af Amer) > 60.0 ml/min 09/13/16 06:25 BUN/Creatinine Ratio 11.7 09/13/16 06:25 Glucose 93 mg/dL (70-105) 09/13/16 06:25 POC Glucose 94 MG/DL (70 - 105) 09/13/16 05:35 Hemoglobin A1c % 6.4 % (4.0-6.0) H 09/12/16 06:20 Calcium 8.3 mg/dL (8.6-10.3) L 09/13/16 06:25 Total Bilirubin 1.8 mg/dL (0.3-1.0) H 09/13/16 06:25 AST 27 U/L (13-39) 09/13/16 06:25 ALT 13 U/L (7-52) 09/13/16 06:25 Alkaline Phosphatase 78 U/L (34-104) 09/13/16 06:25 Ammonia 72 umol/L (16-53) H 09/12/16 06:20 Total Protein 6.4 gm/dL (6.0-8.3) 09/13/16 06:25 Albumin 2.4 gm/dL (4.2-5.5) L 09/13/16 06:25 Globulin 4.0 gm/dL 09/13/16 06:25 Albumin/Globulin Ratio 0.6 (1.0-1.8) L 09/13/16 06:25 TSH 1.38 uIU/ml (0.34-5.60) 09/12/16 06:20 HIV 1&2 Antibody Screen NEGATIVE (NEG) 09/12/16 12:32 - Physical Exam Vitals and I&O: Vital Signs Temp 98.1 F 09/13/16 08:13 Pulse 79 09/13/16 08:37 Resp 20 09/13/16 08:13 BP 127/77 09/13/16 08:38 Pulse Ox 91 09/13/16 08:13 Intake & Output 09/12/16 09/13/16 09/13/16 18:59 06:59 18:59 Intake Total 650 200 Balance 650 200 Intake: Intake, IV Amount 150 200 cefTRIAXone 1 gm In 50 Sodium Chloride 0.9% 50 ml @ 100 mls/hr IV Q24HR [facility] Rx#:[id number] metroNIDAZOLE 500mg/NS 100 200 100mL 500 mg In 100 ml @ 100 mls/hr IV Q8HR [facility] Rx #:[id number] Oral 500 Other: # Voids 4 # Bowel Movements 1 Active Medications: Current Medications Furosemide (Lasix) 40 mg PO DAILY [facility] Stop: 11/11/16 17:59 Last Admin: 09/13/16 08:38 Dose: 40 mg Hydromorphone HCl (Dilaudid) 1 mg IVP Q6HR PRN PRN Reason: Pain (Severe) Stop: 11/10/16 22:17 Ceftriaxone Sodium 1 gm/ (Sodium Chloride) 50 mls @ 100 mls/hr IV Q24HR [facility] Stop: 11/11/16 08:59 Last Admin: 09/13/16 09:12 Dose: 100 mls/hr Metronidazole (Flagyl) 500 mg in 100 mls @ 100 mls/hr IV Q8HR [facility] Stop: 11/11/16 04:59 Last Infusion: 09/13/16 06:32 Dose: Infused Ibuprofen (Motrin) 800 mg PO Q8H PRN PRN Reason: Pain or Fever >101 Stop: 11/10/16 22:18 Insulin Aspart (Novolog Insulin Sliding Scale) 0 units SUBQ ACHS KIT PRN Reason: Protocol Stop: 11/11/16 11:29 Last Admin: 09/13/16 06:57 Dose: Not Given Miscellaneous (Vte Chemical Prophylaxis Screen/ Admission) 1 ea [facility] PRN PRN PRN Reason: PROTOCOL Stop: 11/11/16 16:45 Ondansetron HCl (Zofran) 4 mg IV Q8H PRN PRN Reason: Nausea / Vomiting Stop: 11/10/16 22:20 Spironolactone (Aldactone) 50 mg PO BID [facility] Stop: 11/11/16 16:59 Last Admin: 09/13/16 08:37 Dose: 50 mg General: Alert, Oriented x3, Cooperative, No acute distress, Moderate distress Neck: Supple Cardiovascular: Regular rate Lungs: Clear to auscultation Abdomen: Bowel sounds (Distended with ascitis), Other (Distended non tender.) Extremities: Other (No edema) Neurological: Normal gait Skin: Other (warm and dry) Psych/Mental Status: Mental status NL Assessment/Plan - Assessment Assessment: Patient is awake, alert, calm, oriented. DX: SBP, Pancitopenia, Cirrhosis, DM, anemia. - Plan Plan: Patient is on AB, and insulin sliding scale. . Already seen by ID, and GI. Abdominal paracentesis will be done today. Will continue to monitor.
[2016-09-13 11:18] LABS: EOSINOPHIL 4 % (0-5); NEUTROPHILS 72 % (40-80); PLATELET ESTIMATE DECREASED PLATELETS (NORMAL); PLATELET MORPHOLOGY NORMAL (NORMAL); TOTAL CELLS COUNTED 100
[2016-09-13 11:19] LABS: ANISOCYTOSIS 2+; MICROCYTOSIS 3+
[2016-09-13 11:20] LABS: MEAN CELL VOLUME 62.4 fl (80-99)
[2016-09-13 11:21] LABS: MEAN CORPUSCULAR HEMOGLOBIN 19.7 pg (26.0-30.0)
--- NOTE | 2016-09-13 13:05 | Consultation ---
HEMATOLOGY ONCOLOGY CONSULTATION REFERRING PHYSICIAN: Dr. Alan. REASON FOR CONSULTATION: Pancytopenia. HISTORY OF PRESENT ILLNESS: The patient is a 61-year-old male who was initially admitted to [facility] and then transferred ____ for insurance reasons. He was complaining of abdominal distention and pain, diagnosed with ____ peritonitis and started on antibiotics with ____ improvement in symptoms. The patient stated that he had a history of drinking and he was told that he had liver disease 5 years ago. PAST MEDICAL HISTORY: Anemia with history of gastric bleeding 5 years ago requiring multiple transfusions, history of diabetes. SOCIAL HISTORY: Alcohol use in the past. MEDICATIONS: Reviewed. PHYSICAL EXAMINATION: GENERAL: He is awake, alert, oriented. VITAL SIGNS: Stable. LYMPHATICS: No peripheral lymphadenopathy. CHEST: Clear. ABDOMEN: Soft, distended with mild tenderness in the epigastric area. EXTREMITIES: No edema. LABORATORY DATA: White count 2.8, hemoglobin 8.3, MCV 63, platelets 113, bilirubin 1.8. Ultrasound showed the spleen size 16.6 and ____ cirrhotic liver. ASSESSMENT: 1. Liver cirrhosis with ascites and ____ peritonitis. 2. Hypersplenism with pancytopenia. 3. Microcytic anemia, likely iron deficient. ASSESSMENT AND PLAN: I will follow iron series time and stool occult blood and decide on iron supplementation. Thank you, Dr. Alan for the opportunity to participate in the care of this interesting patient. JOB# [id number]
--- NOTE | 2016-09-14 11:19 | Diagnostic Imaging Report ---
Ultrasound abdomen limited History: Ascites. Recent paracentesis done on outside hospital on 09/11/2016 Technique: Sonography of the abdomen was performed in multiple planes Comparison: CT abdomen on 09/12/2016 Findings: Moderate amount of ascites is seen greatest within the lower quadrants. IMPRESSION: Moderate amount of abdominal ascites.
[2016-09-16 01:10] LABS: ANTITRYPSIN SERUM A1 151 mg/dL (90-200); F1 ACTIN-SMOOTH MUSC IGG 19 Units (0-19); FERRITIN 24 ng/mL (30-400); HEP B CORE IGM Negative (Negative); HEP C ANTIBODY 0.2 s/co ratio (0.0-0.9); IRON SATURATION 6 % (15-55); TIBC (LCI) 282 ug/dL (250-450); UIBC 264 ug/dL (111-343)
--- NOTE | 2016-09-26 23:41 | Discharge Summary ---
CHIEF COMPLAINT: Abdominal pain. HISTORY OF PRESENT ILLNESS: This is the case of a 61-year-old male, who referred that he started with abdominal distention and abdominal pain during the last 3 months. Abdominal pain increased, reason why he went to [facility] for evaluation and treatment. At the ER of [place], the diagnosis was done of spontaneous peritonitis. The patient was transferred to [facility] to continue treatment. HOSPITAL COURSE AND TREATMENT: This patient was transferred to [facility]. He was admitted in the medical-surgical floor. He was started IV normal saline. He had ceftriaxone IV, insulin sliding scale. He was continued with home medications and he got the liver diet. Consults with Dr. Burleson, Dr. Hastings, and Dr. De La Garza were done and recommendations were followed. After 3 days in the hospital and with this treatment and due to the patient's improvement, it was considered the patient received the maximum benefit of hospitalization and he could be sent home, to continue treatment with primary care physician. CONSULTANTS IN THIS CASE: GI, ID, and Hematology. DIAGNOSES: 1. Spontaneous peritonitis. 2. Cirrhosis. 3. Diabetes mellitus. 4. Pancytopenia. JOB# [id number]
== END 2016-09-13 13:45 | disposition hospice, home (50) | DRG 432 ==
LOC: MSI 19:00
PROVIDERS: ADMIT General Practice; ATTEND General Practice
DX: K74.60 Unspecified cirrhosis of liver (principal); K65.2 Spontaneous bacterial peritonitis; D61.818 Other pancytopenia; R18.8 Other ascites; K76.6 Portal hypertension; E11.9 Type 2 diabetes mellitus without complications; I10 Essential (primary) hypertension; K27.9 Peptic ulcer, site unspecified, unspecified as acute or chronic, without hemorrhage or perforation; D50.9 Iron deficiency anemia, unspecified; D73.1 Hypersplenism; Z79.4 Long term (current) use of insulin; Z88.0 Allergy status to penicillin
CPT/HCPCS: 36415-UA; 76700-TC; 76705-TC; 80053-TC; 80074-90; 82103-90; 82105-90; 82140-TC; 82390-90; 82728-90; 82948-90; 83036-90; 83516-90; 83540-90; 83550-90; 84443-TC; 85007-TC; 85027-TC; 85610-TC; 86255-90; 86703-TC; 88262-90; 90799; J0696; J1815; J7030; J7042